=== PATIENT | female | born 1970 | race Caucasian/White ===

== ENCOUNTER → 2016-07-21 | Outpatient (CLI) | payer BC | LOC: FIMAGING 16:06 | PROVIDERS: ATTEND Orthopaedic Surgery | DX: R07.89 Other chest pain (principal) ==

== ENCOUNTER → 2018-02-26 | Outpatient (CLI) | payer BC | LOC: FIMAGING 08:24 | PROVIDERS: ATTEND Family Medicine | DX: Z12.31 Encounter for screening mammogram for malignant neoplasm of breast (principal) ==

== ENCOUNTER → 2018-03-01 | Outpatient (CLI) | payer BC | LOC: FIMAGING 12:31 | PROVIDERS: ATTEND Family Medicine | DX: R92.8 Other abnormal and inconclusive findings on diagnostic imaging of breast (principal) ==